=== PATIENT | male | born 1965 | race Caucasian/White ===

== ENCOUNTER 2016-12-29 19:19 | Emergency (ER) | payer OTHER ==
[2016-12-29 19:34] VITALS: TEMP 97.6; BMI 30.7
[2016-12-29] MEDS ORDERED: ONDANSETRON HCL 4 MG/2 ML VIAL IV ONE (19:35)
[2016-12-29] MEDS ORDERED: MORPHINE 4 MG/ML INJECTION IV ONE (19:35)
[2016-12-29] MEDS ORDERED: NS 1,000 ML IV ONE (19:35)
[2016-12-29 19:58] LABS: AUTOMATED BASOPHIL 0.8 % (0-2); AUTOMATED EOSINOPHIL 1.8 % (0-5); AUTOMATED LYMPH 32.2 % (17-44); AUTOMATED MONOCYTE 8.9 % (3-10); AUTOMATED NEUTROPHIL 56.3 % (45-76); MPV 8.1 fL (7.4-10.4)
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
[2016-12-29 20:04] LABS: ALLEN'S TEST PASS
[2016-12-29 20:05] LABS: ABG Draw Site Right Radial; BEb 1.9 (+/- 2); TCO2 27.9 MMOL/L (23-27)
[2016-12-29 20:15] LABS: BLOOD UREA NITROGEN 12 MG/DL (9-20); CALCIUM 9.2 MG/DL (8.4-10.2); CALCULATED OSMOLALITY 271 MOs/Kg (270-290); CHLORIDE 103 mEq/L (98-107); GLUCOSE 128 mg/dL (70-99); SODIUM LEVEL 140 mEq/L (137-146); TOTAL PROTEIN 7.6 G/DL (6.3-8.2)
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
[2016-12-29] MEDS ORDERED: Pharmacy Review for Metformin - IV Contrast Given SCH (21:00)
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
[2016-12-29 21:54] VITALS: BP 132/88; PULSE 107
[2016-12-29 22:06] LABS: LEUKOCYTES/URINE NEG (NEGATIVE); NITRITE/URINE NEG (NEGATIVE); RBC/URINE 0-2 (0-2); URINE OCCULT BLOOD NEG (NEG/TRACE); WBC/URINE 0-2 (0-2)
== END 2016-12-29 21:53 | disposition home or self-care (01) ==
LOC: ED 19:19
DX: S20.219A Contusion of unspecified front wall of thorax, initial encounter (principal); V49.40XA Driver injured in collision with unspecified motor vehicles in traffic accident, initial encounter; Y93.9 Activity, unspecified; Y92.410 Unspecified street and highway as the place of occurrence of the external cause; R09.02 Hypoxemia; R07.9 Chest pain, unspecified
CPT/HCPCS: 36415; 36600; 70450; 71010; 71260; 72125; 74177; 80053; 81001; 82803; 85025; 96361; 96374; 96375; 99284; A9698; J2270; J2405